=== PATIENT | female | born 2000 ===

== ENCOUNTER 2021-10-14 07:50 | Outpatient (CLI) | payer OTHER ==
[~2021-10-14] VITALS: Ht 157.5 cm; Wt 88.0 kg
[2021-10-14 08:21] VITALS: BP 112/62
[2021-10-14] MEDS ORDERED: MULTTAB20 PO (08:21)
[2021-10-14] MEDS ORDERED: HOME MED LIST COMPLETE! XX SCH (08:30)
[2021-10-14] MEDS ORDERED: LACTATED RINGER'S 1000 ML IV STA (10:14)
[2021-10-14] MEDS ORDERED: LIDOCAINE 1% MDV 20ML VIAL INFIL PRN (10:15)
[2021-10-14] MEDS ORDERED: LR 1,000 ML IV SCH (10:15)
[2021-10-14] MEDS ORDERED: OXYTOCIN DRIP 30 UNITS in IV 1 EA IV PRN (10:15)
[2021-10-14 10:48] VITALS: BP 89/50
[2021-10-14 11:42] VITALS: BP 92/50
== END 2021-10-14 13:10 | disposition home or self-care (01) ==
LOC: M LDO 07:50
PROVIDERS: ATTEND Registered Nurse
DX: O26.893 Other specified pregnancy related conditions, third trimester (principal); R25.2 Cramp and spasm; Z3A.32 32 weeks gestation of pregnancy; M54.50 Low back pain, unspecified; O26.853 Spotting complicating pregnancy, third trimester
CPT/HCPCS: 59025; G0378; G0463